=== PATIENT | female | born 1985 | race African-American/Black ===

== ENCOUNTER 2017-02-24 16:34 | Emergency (ER) | payer OTHER ==
[~2017-02-24] VITALS: Ht 170.2 cm; Wt 104.3 kg
[2017-02-24 17:51] LABS: URINE BILIRUBIN NEGATIVE (Negative); URINE BLOOD NEGATIVE (Negative); URINE COLOR YELLOW; URINE GLUCOSE-RANDOM* NEGATIVE (Negative); URINE KETONES NEGATIVE (Negative); URINE NITRITE NEGATIVE (Negative); URINE PROTEIN (DIPSTICK) NEGATIVE (Negative); URINE SPECIFIC GRAVITY 1.025 (1.003-1.035)
[2017-02-24 19:24] VITALS: BP 120/78
[2017-02-25 18:07] LABS: CHLAMYDIA TRACHOMATIS-PCR Negative (Negative); NEISSERIA GONORRHEA-PCR Negative (Negative)
== END 2017-02-24 19:26 | disposition home or self-care (01) ==
LOC: ER 16:34
PROVIDERS: Nurse Practitioner
DX: N89.8 Other specified noninflammatory disorders of vagina (principal)